=== PATIENT | female | born 1950 | race Caucasian/White ===

== ENCOUNTER 2018-09-20 12:08 | Emergency (ER) | payer MEDICAID ==
[2018-09-20] MEDS: MAGNESIUM CITRATE 300 ML BTL PO (12:55)
== END 2018-09-20 13:16 | disposition home or self-care (01) ==
LOC: E/R 12:08
DX: K59.00 Constipation, unspecified (principal); I16.0 Hypertensive urgency
CPT/HCPCS: 99282; Z7502

== ENCOUNTER 2018-10-15 22:08 | Emergency (ER) | payer MEDICAID ==
[~2018-10-15 22:08] MED LIST: CA CHLORIDE 10% 10 ML SYRINGE; EPINEPHrine 0.1 MG/ML SYG; NA BICARBONATE 8.4% 50 ML SYG
== END 2018-10-16 01:45 | disposition expired ==
LOC: E/R 22:08
DX: I46.9 Cardiac arrest, cause unspecified (principal); I25.10 Atherosclerotic heart disease of native coronary artery without angina pectoris; N18.9 Chronic kidney disease, unspecified; I12.9 Hypertensive chronic kidney disease with stage 1 through stage 4 chronic kidney disease, or unspecified chronic kidney disease; Z95.1 Presence of aortocoronary bypass graft
CPT/HCPCS: 31500; 82962; 92950; 99291-25